=== PATIENT | female | born 1965 | race Caucasian/White ===

== ENCOUNTER 2017-11-03 12:07 | Day surgery (SDC) | payer OTHER, MEDICAID ==
[~2017-11-03] VITALS: Ht 157.5 cm; Wt 78.0 kg
[2017-11-03] MEDS ORDERED: KETOROLAC TROMETHAMINE 30 MG VIAL IVP ONE ×2 (14:01→15:00)
[2017-11-03] MEDS ORDERED: SEVOFLURANE 15 MIN GAS INH ONE (14:01)
[2017-11-03] MEDS ORDERED: NS IRRIG SOLN 1000 ML IR ONE (14:01)
[2017-11-03] MEDS ORDERED: ONDANSETRON HCL 4 MG/2 ML VIAL IVP ONE ×2 (14:01→15:00)
[2017-11-03] MEDS ORDERED: PROPOFOL 200MG/ 20ML VIAL (DIPRIVAN) IV ONE (14:01)
[2017-11-03] MEDS ORDERED: MIDAZOLAM HCL 5 MG/5 ML VIAL IVP ONE (14:01)
[2017-11-03] MEDS ORDERED: fentaNYL CITRATE/PF 100 MCG/2 ML AMP IVP ONE (14:01)
[2017-11-03] MEDS ORDERED: CEFAZOLIN 2 GM IVPB PREMIX 50 ML IV ONE (14:01)
[2017-11-03] MEDS ORDERED: DEXAMETHASONE SOD PHOSPHATE 4 MG/ML VIAL IVP ONE (14:01)
[2017-11-03] MEDS ORDERED: LR 1,000 ML IV.SOLN IV ONE (14:01)
[2017-11-03] MEDS ORDERED: LIDOCAINE JECT 2% PF 100 MG/5ML SYRINGE IVP ONE (14:01)
[2017-11-03] MEDS ORDERED: MEPERIDINE HCL/PF 100 MG/ML AMP IM ONE (14:01)
[2017-11-03] MEDS ORDERED: LABETALOL 100 MG/ 20ML VIAL IVP PRN (15:00)
[2017-11-03] MEDS ORDERED: NALOXONE HCL 0.4 MG/ML AMP (NARCAN) IVP ONE (15:00)
[2017-11-03] MEDS ORDERED: MEPERIDINE HCL/PF 25 MG/ML DISP.SYRIN IVP PRN (15:00)
[2017-11-03] MEDS ORDERED: MIDAZOLAM HCL 5 MG/5 ML VIAL IVP PRN (15:00)
[2017-11-03] MEDS ORDERED: HYDROmorphone 1 MG INJ. 1 MG/ML AMPUL IVP PRN (15:00)
[2017-11-03] MEDS ORDERED: fentaNYL CITRATE/PF 100 MCG/2 ML AMP IVP PRN (15:00)
[2017-11-03] MEDS ORDERED: HYDROmorphone 2 MG/ML VIAL ONE (15:04)
[2017-11-03 17:49] VITALS: BP_SYST 146
== END 2017-11-03 17:00 | disposition home or self-care (01) ==
LOC: SDS 12:07 → SMU 12:14 → SDS 17:00
PROVIDERS: ATTEND Orthopaedic Surgery
DX: S52.531A Colles' fracture of right radius, initial encounter for closed fracture (principal); W18.30XA Fall on same level, unspecified, initial encounter; Y93.9 Activity, unspecified; Y92.89 Other specified places as the place of occurrence of the external cause; Y99.9 Unspecified external cause status; Z98.890 Other specified postprocedural states; Z90.710 Acquired absence of both cervix and uterus; Z79.899 Other long term (current) drug therapy
CPT/HCPCS: 25605; 76000; A4565; C1713; J0690; J1100; J1170; J1885; J2175; J2250; J2405; J2704; J3010; J7120